=== PATIENT | male | born 1950 | race Caucasian/White ===

== ENCOUNTER → 2016-11-26 | Outpatient (CLI) | payer BC | LOC: RAD 08:20 | PROVIDERS: ATTEND Internal Medicine | DX: I71.4 Abdominal aortic aneurysm, without rupture (principal) | CPT/HCPCS: 74177; 82565 ==

== ENCOUNTER 2017-09-26 11:19 | Inpatient (IN) | payer BC ==
[2017-09-26 13:12] LABS: HEMATOCRIT 39.7 % (37.9-51.0); HGB HCT DIFFERENCE -0.7; MEAN CORPUSCULAR HEMOGLOBIN 27.9 pg (27.0-33.4); MEAN CORPUSCULAR HGB CONC 32.9 g/dL (32.0-36.0); MEAN CORPUSCULAR VOLUME 85 fl (80-97); RED BLOOD COUNT 4.67 10^6/uL (4.35-5.55); RED CELL DISTRIBUTION WIDTH 14.2 % (11.5-14.0); WHITE BLOOD COUNT 10.9 10^3/uL (4.0-10.5)
[2017-09-26 13:22] LABS: PROTHROMBIN TIME 19.8 SEC (11.4-15.4)
[2017-09-26 13:23] LABS: PARTIAL THROMBOPLASTIN TIME 30.3 SEC (23.5-35.8)
[2017-09-26 13:44] LABS: ALANINE AMINOTRANSFERASE 62 U/L (21-72); ALBUMIN 4.1 g/dL (3.5-5.0); ALKALINE PHOSPHATASE 131 U/L (38-126); ANION GAP 14 (5-19); ASPARTATE AMINO TRANSFERASE 40 U/L (17-59); BILIRUBIN,DIRECT 0.4 mg/dL (0.0-0.4); BLOOD UREA NITROGEN 21 mg/dL (7-20); CALCIUM 9.4 mg/dL (8.4-10.2); CARBON DIOXIDE 23 mmol/L (22-30); CHLORIDE 105 mmol/L (98-107); CREATININE RESULT 1.19 mg/dL (0.52-1.25); GLUCOSE 179 mg/dL (75-110); POTASSIUM 4.7 mmol/L (3.6-5.0); SODIUM 141.9 mmol/L (137-145); TOTAL PROTEIN 7.9 g/dL (6.3-8.2)
[2017-09-26] MEDS ORDERED: FENTANYL CITRATE INJ/PF 100 MCG/2 ML AMPUL ONE (13:48)
[2017-09-26] MEDS ORDERED: NALOXONE HCL INJ/PF 0.4 MG/1 ML SDV ONE (13:48)
[2017-09-26] MEDS ORDERED: MIDAZOLAM 2 MG/2 ML INJ ONE (13:48)
[2017-09-26] MEDS ORDERED: FLUMAZENIL INJ 0.5 MG/5 ML VIAL ONE (13:49)
[2017-09-26] MEDS ORDERED: EPINEPHRINE INJ 1 MG/10 ML DISP.SYRIN ONE (13:49)
[2017-09-26] MEDS ORDERED: GLUCAGON,HUMAN RECOMB 1 MG INJ ONE (13:49)
--- NOTE | 2017-09-26 14:52 | PDOC CONSULTATION ---
Consultation Consult Date: 09/26/17 History of Present Illness Admission Date/PCP: 09/26/17 11:19 RAFAEL SEGUNDO MD History of Present Illness: SUNNI MONIQUE is a 66-year-old patient admitted directly to the hospital with rectal bleeding. The bleeding started last night when he had 2 episodes and another episode this morning. There was a lot of blood in the toilet bowl. He denies abdominal pain, nausea, or vomiting. He had an EGD on 09/22/2017 that was normal. This was performed for reflux disease. He takes Coumadin and his INR was 1.58 on admission. He had a colonoscopy in 2013 that showed hemorrhoids and pancolonic diverticulosis Past Medical History Cardiac Medical History: Reports: Hypertension Neurological Medical History: Denies: Seizures Endocrine Medical History: Reports: Diabetes Mellitus Type 2 Psychiatric Medical History: Reports: Depression Social History Smoking Status: Former Smoker Frequency of Alcohol Use: Occasional Hx Recreational Drug Use: No Drugs: None Hx Prescription Drug Abuse: No - Advance Directive Resuscitation Status: Full Code Family History Parental Family History Reviewed: No Children Family History Reviewed: NA Sibling(s) Family History Reviewed.: NA Medication/Allergy Home Medications: Aspirin [Aspirin EC] 81 mg PO DAILY 09/26/17 Atorvastatin Calcium [Lipitor 80 mg Tablet] 80 mg PO QHS 09/26/17 Desipramine HCl [Norpramin 50 mg Tablet] 50 mg PO DAILY 09/26/17 Dulaglutide [Trulicity] 1.5 mg SQ FR@1000 09/26/17 Glyburide/Metformin HCl [Glyburide-Metformin 5-500 mg] 1 tab PO TID 09/26/17 Losartan/Hydrochlorothiazide [Hyzaar 100-25 Tablet] 1 tab PO DAILY 09/26/17 Metoprolol Succinate [Toprol XL 200 mg Tablet] 200 mg PO DAILY 09/26/17 Multivitamin [Daily Multiple Vitamin] 1 tab PO DAILY 09/26/17 Tamsulosin HCl [Flomax 0.4 mg Cap.sr] 0.4 mg PO PCBRKFST 09/26/17 Warfarin Sodium [Coumadin 7.5 mg Tablet] 7.5 mg PO DAILY 09/26/17 Allergies/Adverse Reactions: No Known Drug Allergies Allergy (Verified 10/06/15 17:46) Review of Systems All systems: reviewed and no additional remarkable complaints except as stated Physical Exam Vital Signs: Temp Pulse Resp BP Pulse Ox 97.4 F 79 15 125/82 92 09/26/17 13:35 09/26/17 14:25 09/26/17 14:25 09/26/17 14:25 09/26/17 14:25 Intake & Output 09/25/17 09/26/17 09/27/17 06:59 06:59 06:59 Weight 116.6 kg Exam: General: Patient is alert and looks well. HEENT: There is no pallor or jaundice. PERRLA. Oropharynx normal Respiratory: No chest deformity. No respiratory distress. Chest wall palpitation was unremarkable. Breath sounds were normal Cardiovascular: Heart sounds 1 and 2 normal with no murmurs. Abdominal: Not distended. Soft and nontender. Liver and spleen not palpable. No ascites demonstrated. Bowel sounds active. Rectal examination was deferred. Extremities: No edema Neurological: Alert and oriented x4. Grossly nonfocal. Normal speech Skin: No significant rash Psychological: Normal affect Results Laboratory Results: 09/26/17 12:53 09/26/17 12:53 09/26/17 09/26/17 09/26/17 12:53 12:53 12:53 WBC 10.9 H RBC 4.67 Hgb 13.0 L Hct 39.7 MCV 85 MCH 27.9 MCHC 32.9 RDW 14.2 H Plt Count 301 Sodium 141.9 Potassium 4.7 Chloride 105 Carbon Dioxide 23 Anion Gap 14 BUN 21 H Creatinine 1.19 Est GFR ( Amer) > 60 Est GFR (Non-Af Amer) > 60 Glucose 179 H Calcium 9.4 Total Bilirubin 1.0 AST 40 ALT 62 Alkaline Phosphatase 131 H Total Protein 7.9 Albumin 4.1 Blood Type B POSITIVE Antibody Screen NEGATIVE Assessment & Plan - Diagnosis (1) GI bleed Is this a current diagnosis for this admission?: Yes Plan: Differential diagnosis for his rectal bleeding include diverticular disease, hemorrhoids, and less likely peptic ulcer disease. He will undergo an EGD and a colonoscopy. His hemoglobin was 13 on admission (2) Rectal bleeding Is this a current diagnosis for this admission?: Yes (3) High risk medication use Is this a current diagnosis for this admission?: Yes
--- NOTE | 2017-09-26 14:55 | Operative Report ---
Operative Report DATE OF SURGERY: 09/26/17 Operative Report: Pre-op diagnosis: Rectal bleeding Post-op diagnosis: 1. Antral gastritis 2. Left-sided diverticulosis with bleeding 3. Limited view of the colon Surgery: Upper endoscopy with biopsy and Colonoscopy Medications: Versed 2mg, Fentanyl 100mcg IV push Tissue removed: Antral biopsy Procedure: After informed consent obtained from patient, patient's pharynx was sprayed with Hurricane and conscious sedation was achieved. The upper endoscope was then inserted into the esophagus under direct vision and advanced into the stomach and further into the duodenum. Detailed examination of the duodenum, stomach and the esophagus was then performed. A digital rectal examination was performed and this was unremarkable. The colonoscope was inserted into the rectum and advanced to the cecum. The appendiceal orifice and the terminal ileum were both identified. The mucosa was examined into details as the colonoscope was slowly pulled out of the patient. The endoscope was retroflexed in the rectum. Patient tolerated the procedure well. Findings Esophagus: Normal Stomach: Mild erythema in the gastric antrum. Biopsy was taken Duodenum: Normal Cecum: Normal Ascending colon: Normal with no evidence of old blood Transverse colon: Normal Descending colon: Scattered diverticulosis with altered blood. Limited view Sigmoid colon: Diverticulosis with altered blood. A bleeding site was not identified. Limited view Rectum: Normal except for internal hemorrhoids Plan: He likely bled from his diverticular disease. Continue following up his H &H and perform a bleeding scan and surgical consult if there is further evidence of acute blood loss OPERATION: .
[2017-09-26] MEDS: NORMAL SALINE 1000 ML 1,000 ML IV PRN (17:02)
--- NOTE | 2017-09-26 17:09 | RADIOLOGY REPORT (SQ) ---
EXAM DESCRIPTION: CHEST SINGLE VIEW COMPLETED DATE/TIME: 09/26/2017 4:45 pm REASON FOR STUDY: BASELINE COMPARISON: 10/06/2015 EXAM PARAMETERS: NUMBER OF VIEWS: One view. TECHNIQUE: Single frontal radiographic view of the chest acquired. RADIATION DOSE: NA LIMITATIONS: None. FINDINGS: LUNGS AND PLEURA: Low lung volumes. No infiltrate or effusion. MEDIASTINUM AND HILAR STRUCTURES: No masses. Contour normal. HEART AND VASCULAR STRUCTURES: Cardiomegaly, accentuated by low lung volumes. BONES: No acute findings. HARDWARE: None in the chest. OTHER: No other significant finding. IMPRESSION: Cardiomegaly without failure. TECHNICAL DOCUMENTATION: JOB ID: [id number] [employer]- All Rights Reserved
[2017-09-26] MEDS ORDERED: GLUCAGON,HUMAN RECOMB 1 MG INJ IM PRN (17:51)
[2017-09-26] MEDS ORDERED: DEXTROSE 40% GEL 15 GM TUBE PO PRN ×2 (17:51)
[2017-09-26] MEDS ORDERED: DEXTROSE 50%-WATER 25 GM/50 ML DISP.SYRIN IV PRN ×2 (17:51)
[2017-09-26] MEDS ORDERED: INSULIN REG, HUMAN 100 UNIT/ML 3 ML VIAL (PYX) SUBCUT PRN (17:51)
[2017-09-26] MEDS ORDERED: (PENDING PHARMACY ID) (Glyburide/Metformin Hcl [Glyburide-Metformin 5-500 Mg] 1 TAB) PO SCH (18:00)
[2017-09-26] MEDS ORDERED: (PENDING PHARMACY ID) (Losartan/Hydrochlorothiazide [Hyzaar 100-25 Tablet] 1 TAB) PO SCH (18:00)
[2017-09-26] MEDS ORDERED: (PENDING PHARMACY ID) (Metoprolol Succinate [Toprol Xl 200 Mg Tablet] 200 MG) PO SCH (18:00)
--- NOTE | 2017-09-26 19:11 | PDOC H&P ---
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 Consultation was requested from Dr. Gonzalez, gastroenterology, he underwent immediate EGD and colonoscopy he was found to have left-sided diverticulosis with bleeding and antral gastritis. The hemogram that was done revealed hemoglobin of 13, no immediate need for blood transfusion. The blood pressure recorded in the office was 90 systolic Past Medical History Cardiac Medical History: Reports: Hypertension Endocrine Medical History: Reports: Diabetes Mellitus Type 2 Psychiatric Medical History: Reports: Depression Social History Smoking Status: Former Smoker Frequency of Alcohol Use: Occasional Hx Recreational Drug Use: No Drugs: None Hx Prescription Drug Abuse: No - Advance Directive Resuscitation Status: Full Code Family History Parental Family History Reviewed: Yes Children Family History Reviewed: Yes Sibling(s) Family History Reviewed.: Yes Medication/Allergy Home Medications: Aspirin [Aspirin EC] 81 mg PO DAILY 09/26/17 Atorvastatin Calcium [Lipitor 80 mg Tablet] 80 mg PO QHS 09/26/17 Desipramine HCl [Norpramin 50 mg Tablet] 50 mg PO DAILY 09/26/17 Dulaglutide [Trulicity] 1.5 mg SQ FR@1000 09/26/17 Glyburide/Metformin HCl [Glyburide-Metformin 5-500 mg] 1 tab PO TID 09/26/17 Losartan/Hydrochlorothiazide [Hyzaar 100-25 Tablet] 1 tab PO DAILY 09/26/17 Metoprolol Succinate [Toprol XL 200 mg Tablet] 200 mg PO DAILY 09/26/17 Multivitamin [Daily Multiple Vitamin] 1 tab PO DAILY 09/26/17 Tamsulosin HCl [Flomax 0.4 mg Cap.sr] 0.4 mg PO PCBRKFST 09/26/17 Warfarin Sodium [Coumadin 7.5 mg Tablet] 7.5 mg PO DAILY 09/26/17 Allergies/Adverse Reactions: No Known Drug Allergies Allergy (Verified 10/06/15 17:46) Review of Systems Constitutional: PRESENT: fatigue Eyes: ABSENT: visual disturbances Ears: ABSENT: hearing changes Cardiovascular: ABSENT: chest pain, dyspnea on exertion, edema, orthropnea, palpitations Respiratory: ABSENT: cough, hemoptysis Gastrointestinal: PRESENT: hematochezia Genitourinary: ABSENT: dysuria, hematuria Musculoskeletal: ABSENT: joint swelling Integumentary: ABSENT: rash, wounds Neurological: ABSENT: abnormal gait, abnormal speech, confusion, dizziness, focal weakness, syncope Psychiatric: ABSENT: anxiety, depression, homidical ideation, suicidal ideation Endocrine: ABSENT: cold intolerance, heat intolerance, menstrual abnormalities, polydipsia, polyuria Hematologic/Lymphatic: ABSENT: easy bleeding, easy bruising, lymphadenopathy Physical Exam Vital Signs: Temp Pulse Resp BP Pulse Ox 97.5 F 87 18 112/61 97 09/26/17 16:00 09/26/17 16:00 09/26/17 16:00 09/26/17 16:00 09/26/17 16:00 Intake & Output 09/25/17 09/26/17 09/27/17 06:59 06:59 06:59 Intake Total 2250 Balance 2250 Weight 116.6 kg General appearance: PRESENT: mild distress Head exam: PRESENT: atraumatic, normocephalic Eye exam: PRESENT: conjunctiva pale, PERRLA. ABSENT: scleral icterus Mouth exam: PRESENT: dry mucosa Neck exam: PRESENT: full ROM Respiratory exam: PRESENT: clear to auscultation keny Cardiovascular exam: PRESENT: RRR, +S2 Murmur grade: 3 Pulses: PRESENT: normal dorsalis pedis pul, +2 pedal pulses bilateral Vascular exam: PRESENT: normal capillary refill GI/Abdominal exam: PRESENT: normal bowel sounds, soft Rectal exam: PRESENT: deferred Neurological exam: PRESENT: altered Psychiatric exam: PRESENT: appropriate affect Skin exam: PRESENT: dry, intact, warm. ABSENT: cyanosis, rash Results Laboratory Results: 09/26/17 12:53 09/26/17 12:53 09/26/17 09/26/17 09/26/17 12:53 12:53 12:53 WBC 10.9 H RBC 4.67 Hgb 13.0 L Hct 39.7 MCV 85 MCH 27.9 MCHC 32.9 RDW 14.2 H Plt Count 301 Sodium 141.9 Potassium 4.7 Chloride 105 Carbon Dioxide 23 Anion Gap 14 BUN 21 H Creatinine 1.19 Est GFR ( Amer) > 60 Est GFR (Non-Af Amer) > 60 Glucose 179 H Calcium 9.4 Total Bilirubin 1.0 AST 40 ALT 62 Alkaline Phosphatase 131 H Total Protein 7.9 Albumin 4.1 Blood Type B POSITIVE Antibody Screen NEGATIVE Impressions: Chest X-Ray 09/26/17 12:13 IMPRESSION: Cardiomegaly without failure. Assessment & Plan - Diagnosis (1) Lower gastrointestinal hemorrhage Is this a current diagnosis for this admission?: Yes Plan: Patient came to the office today for evaluation of lower gastrointestinal hemorrhage, he underwent immediate EGD and colonoscopy he was found to have left -sided diverticulosis with bleeding (2) Hypotension due to blood loss Is this a current diagnosis for this admission?: Yes Plan: Low blood pressure due to blood loss, continue hydration with normal saline
[2017-09-26] MEDS: ATORVASTATIN CALCIUM 80 MG TABLET PO SCH (22:04)
[2017-09-27] MEDS: NORMAL SALINE 1000 ML 1,000 ML IV PRN ×3 (01:41→15:43)
[2017-09-27] MEDS: TAMSULOSIN HCL 0.4 MG CAP.SR.24H PO SCH (08:18)
[2017-09-27] MEDS: METFORMIN HCL 500 MG TABLET PO SCH ×3 (08:19→16:56)
[2017-09-27] MEDS: GLYBURIDE 5 MG TABLET PO SCH ×3 (08:19→16:57)
[2017-09-27] MEDS: METOPROLOL SUCCINATE 50 MG TAB.SR.24H PO SCH (09:15)
[2017-09-27] MEDS: HYDROCHLOROTHIAZIDE 25 MG TABLET PO SCH (09:16)
[2017-09-27] MEDS: LOSARTAN POTASSIUM 50 MG TABLET PO SCH (09:16)
[2017-09-27] MEDS: MULTIVITAMIN TABLET PO SCH (09:17)
[2017-09-27] MEDS: DESIPRAMINE HCL 50 MG TABLET PO SCH (09:55)
[2017-09-27 13:30] LABS: ABSOLUTE LYMPHOCYTES (AUTO) 2.4 10^3/uL (0.5-4.7); ABSOLUTE MONOCYTES (AUTO) 0.6 10^3/uL (0.1-1.4); ABSOLUTE NEUT (AUTO) 4.3 10^3/uL (1.7-8.2); BASOPHILS % (AUTO) 0.4 % (0-2); EOSINOPHILS % (AUTO) 0.4 % (0-6); HEMATOCRIT 33.2 % (37.9-51.0); HGB HCT DIFFERENCE -0.5; LYMPHOCYTES % (AUTO) 32.4 % (13-45); MEAN CORPUSCULAR HGB CONC 32.9 g/dL (32.0-36.0); MEAN CORPUSCULAR VOLUME 85 fl (80-97); MONOCYTES % (AUTO) 8.4 % (3-13); SEGMENTED NEUTROPHILS % (AUTO) 58.4 % (42-78); WHITE BLOOD COUNT 7.4 10^3/uL (4.0-10.5)
[2017-09-27 13:31] LABS: HEMOGLOBIN 10.9 g/dL (13.5-17.0)
[2017-09-27 13:43] LABS: ALANINE AMINOTRANSFERASE 49 U/L (21-72); ALBUMIN 3.3 g/dL (3.5-5.0); ALKALINE PHOSPHATASE 87 U/L (38-126); ANION GAP 10 (5-19); ASPARTATE AMINO TRANSFERASE 30 U/L (17-59); BILIRUBIN,DIRECT 0.3 mg/dL (0.0-0.4); BILIRUBIN,TOTAL 0.9 mg/dL (0.2-1.3); BLOOD UREA NITROGEN 11 mg/dL (7-20); CALCIUM 8.8 mg/dL (8.4-10.2); CARBON DIOXIDE 27 mmol/L (22-30); CHLORIDE 108 mmol/L (98-107); CREATININE RESULT 0.95 mg/dL (0.52-1.25); GLUCOSE 113 mg/dL (75-110); POTASSIUM 3.9 mmol/L (3.6-5.0); SODIUM 144.7 mmol/L (137-145); TOTAL PROTEIN 6.5 g/dL (6.3-8.2)
--- NOTE | 2017-09-27 14:19 | PDOC PROGRESS REPORT ---
Subjective Progress Note for:: 09/27/17 Subjective:: Patient was admitted yesterday because of GI bleed, he has not required any blood transfusion, he told me that he had blood the stool today when he had a bowel movement Physical Exam Vital Signs: Temp Pulse Resp BP Pulse Ox 98.5 F 83 18 116/71 95 09/27/17 12:01 09/27/17 14:00 09/27/17 12:01 09/27/17 12:01 09/27/17 12:01 Intake & Output 09/26/17 09/27/17 09/28/17 06:59 06:59 06:59 Intake Total 4050 354 Output Total 1000 Balance 3050 354 Weight 115.5 kg General appearance: PRESENT: no acute distress, well-developed, well-nourished Head exam: PRESENT: atraumatic, normocephalic Eye exam: PRESENT: conjunctiva pink, EOMI, PERRLA. ABSENT: scleral icterus Ear exam: PRESENT: normal external ear exam Mouth exam: PRESENT: moist, tongue midline Neck exam: PRESENT: full ROM Respiratory exam: PRESENT: clear to auscultation keny Cardiovascular exam: PRESENT: RRR, +S1, +S2 Murmur grade: 3 Pulses: PRESENT: normal dorsalis pedis pul, +2 pedal pulses bilateral Vascular exam: PRESENT: normal capillary refill GI/Abdominal exam: PRESENT: normal bowel sounds, soft Rectal exam: PRESENT: deferred Neurological exam: PRESENT: alert, awake, oriented to person, oriented to place , oriented to time, oriented to situation, CN II-XII grossly intact. ABSENT: motor sensory deficit Psychiatric exam: PRESENT: appropriate affect, normal mood Skin exam: PRESENT: dry, intact, warm Results Laboratory Results: 09/27/17 13:14 09/27/17 13:14 09/26/17 09/27/17 09/27/17 18:40 13:14 13:14 WBC 7.4 RBC 3.90 L Hgb 10.9 L D Hct 33.2 L MCV 85 MCH 28.0 MCHC 32.9 RDW 14.0 Plt Count 241 Seg Neutrophils % 58.4 Lymphocytes % 32.4 Monocytes % 8.4 Eosinophils % 0.4 Basophils % 0.4 Absolute Neutrophils 4.3 Absolute Lymphocytes 2.4 Absolute Monocytes 0.6 Absolute Eosinophils 0.0 Absolute Basophils 0.0 Sodium 144.7 Potassium 3.9 Chloride 108 H Carbon Dioxide 27 Anion Gap 10 BUN 11 Creatinine 0.95 Est GFR ( Amer) > 60 Est GFR (Non-Af Amer) > 60 Glucose 113 H Calcium 8.8 Total Bilirubin 0.9 AST 30 ALT 49 Alkaline Phosphatase 87 Total Protein 6.5 Albumin 3.3 L Stool Occult Blood POSITIVE Impressions: Chest X-Ray 09/26/17 12:13 IMPRESSION: Cardiomegaly without failure. Assessment & Plan - Diagnosis (1) Lower gastrointestinal hemorrhage Is this a current diagnosis for this admission?: Yes (2) Hypotension due to blood loss Is this a current diagnosis for this admission?: Yes - Plan Summary Plan Summary: Patient will be kept for 1 more day to ensure that there is no ongoing GI bleed if the GI bleed should recur ,will required a bleeding scan
[2017-09-27] MEDS: ATORVASTATIN CALCIUM 80 MG TABLET PO SCH (21:24)
[2017-09-28] MEDS: METFORMIN HCL 500 MG TABLET PO SCH ×2 (08:04→11:37)
[2017-09-28] MEDS: TAMSULOSIN HCL 0.4 MG CAP.SR.24H PO SCH (08:04)
[2017-09-28] MEDS: GLYBURIDE 5 MG TABLET PO SCH ×2 (08:04→11:37)
[2017-09-28] MEDS: MULTIVITAMIN TABLET PO SCH (09:52)
[2017-09-28] MEDS: DESIPRAMINE HCL 50 MG TABLET PO SCH (09:52)
[2017-09-28] MEDS: LOSARTAN POTASSIUM 50 MG TABLET PO SCH (09:53)
[2017-09-28] MEDS: HYDROCHLOROTHIAZIDE 25 MG TABLET PO SCH (09:53)
[2017-09-28] MEDS: METOPROLOL SUCCINATE 50 MG TAB.SR.24H PO SCH (09:54)
[2017-09-28 11:33] LABS: ABSOLUTE EOSINOPHILS # (AUTO) 0.1 10^3/uL (0.0-0.6); ABSOLUTE MONOCYTES (AUTO) 0.5 10^3/uL (0.1-1.4); ABSOLUTE NEUT (AUTO) 4.6 10^3/uL (1.7-8.2); BASOPHILS % (AUTO) 0.5 % (0-2); EOSINOPHILS % (AUTO) 1.4 % (0-6); HEMATOCRIT 30.3 % (37.9-51.0); HEMOGLOBIN 9.9 g/dL (13.5-17.0); HGB HCT DIFFERENCE -0.6; LYMPHOCYTES % (AUTO) 27.6 % (13-45); MEAN CORPUSCULAR HEMOGLOBIN 27.8 pg (27.0-33.4); MEAN CORPUSCULAR HGB CONC 32.7 g/dL (32.0-36.0); MEAN CORPUSCULAR VOLUME 85 fl (80-97); MONOCYTES % (AUTO) 7.4 % (3-13); RED BLOOD COUNT 3.57 10^6/uL (4.35-5.55); SEGMENTED NEUTROPHILS % (AUTO) 63.1 % (42-78); WHITE BLOOD COUNT 7.2 10^3/uL (4.0-10.5)
[2017-09-28 11:41] VITALS: BP 113/75
[2017-09-28 11:55] LABS: ALANINE AMINOTRANSFERASE 49 U/L (21-72); ALKALINE PHOSPHATASE 88 U/L (38-126); ANION GAP 8 (5-19); ASPARTATE AMINO TRANSFERASE 28 U/L (17-59); BILIRUBIN,DIRECT 0.3 mg/dL (0.0-0.4); BILIRUBIN,TOTAL 0.8 mg/dL (0.2-1.3); BLOOD UREA NITROGEN 9 mg/dL (7-20); CALCIUM 8.7 mg/dL (8.4-10.2); CARBON DIOXIDE 25 mmol/L (22-30); CHLORIDE 110 mmol/L (98-107); CREATININE RESULT 0.91 mg/dL (0.52-1.25); GLUCOSE 151 mg/dL (75-110); POTASSIUM 3.9 mmol/L (3.6-5.0); SODIUM 143.1 mmol/L (137-145); TOTAL PROTEIN 6.2 g/dL (6.3-8.2)
--- NOTE | 2017-09-28 13:54 | PDOC DISCHARGE SUMMARY ---
General - Admit/Disc Date/PCP Admission Date/Primary Care Provider: 09/26/17 11:19 RAFAEL SEGUNDO MD Discharge Date: 09/28/17 - Discharge Diagnosis (1) Lower gastrointestinal hemorrhage Is this a current diagnosis for this admission?: Yes (2) Hypotension due to blood loss Is this a current diagnosis for this admission?: Yes (3) Type 2 diabetes mellitus Is this a current diagnosis for this admission?: Yes (4) Diverticulosis of colon with hemorrhage Is this a current diagnosis for this admission?: Yes - Additional Information Resuscitation Status: Full Code Discharge Diet: Diabetic Discharge Activity: Activity As Tolerated Home Medications: Aspirin [Aspirin EC] 81 mg PO DAILY 09/26/17 Atorvastatin Calcium [Lipitor 80 mg Tablet] 80 mg PO QHS 09/26/17 Desipramine HCl [Norpramin 50 mg Tablet] 50 mg PO DAILY 09/26/17 Dulaglutide [Trulicity] 1.5 mg SQ FR@1000 09/26/17 Glyburide/Metformin HCl [Glyburide-Metformin 5-500 mg] 1 tab PO TID 09/26/17 Losartan/Hydrochlorothiazide [Hyzaar 100-25 Tablet] 1 tab PO DAILY 09/26/17 Metoprolol Succinate [Toprol XL 200 mg Tablet] 200 mg PO DAILY 09/26/17 Multivitamin [Daily Multiple Vitamin] 1 tab PO DAILY 09/26/17 Tamsulosin HCl [Flomax 0.4 mg Cap.sr] 0.4 mg PO PCBRKFST 09/26/17 Warfarin Sodium [Coumadin 7.5 mg Tablet] 7.5 mg PO DAILY 09/26/17 History of Present Illness History of Present Illness: Patient 66-year-old male with a history of type 2 diabetes mellitus, 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 Consultation was requested from Dr. Gonzalez, gastroenterology, he underwent immediate EGD and colonoscopy he was found to have left-sided diverticulosis with bleeding and antral gastritis. The hemogram that was done revealed hemoglobin of 13, no immediate need for blood transfusion. The blood pressure recorded in the office was 90 systolic Hospital Course Hospital Course: Patient was admitted for the management of lower GI bleed with associated hypotension, he was seen by GI Dr. Gonzalez, he underwent EGD and colonoscopy. There was blood in the left colon, it was felt that he bled from diverticulosis. He did not require blood transfusion during hospital stay patient is on warfarin chronically because of aneurysm of the coronary artery, is advised to hold the warfarin until he follows in the office for follow-up Physical Exam Vital Signs: Temp Pulse Resp BP Pulse Ox 98.1 F 81 17 113/75 96 09/28/17 11:32 09/28/17 11:32 09/28/17 11:32 09/28/17 11:32 09/28/17 11:32 Intake & Output 09/27/17 09/28/17 09/29/17 06:59 06:59 06:59 Intake Total 4050 4946 591 Output Total 1000 Balance 3050 4946 591 Weight 115.5 kg 119.6 kg General appearance: PRESENT: no acute distress, well-developed, well-nourished Head exam: PRESENT: atraumatic, normocephalic Eye exam: PRESENT: conjunctiva pink, EOMI, PERRLA Ear exam: PRESENT: normal external ear exam Mouth exam: PRESENT: moist, tongue midline Neck exam: PRESENT: full ROM Respiratory exam: PRESENT: clear to auscultation keny Cardiovascular exam: PRESENT: RRR, +S1, +S2 Murmur grade: 3 Pulses: PRESENT: normal dorsalis pedis pul, +2 pedal pulses bilateral Vascular exam: PRESENT: normal capillary refill GI/Abdominal exam: PRESENT: normal bowel sounds, soft Rectal exam: PRESENT: deferred Neurological exam: PRESENT: alert, awake, oriented to person, oriented to place , oriented to time, oriented to situation, CN II-XII grossly intact Psychiatric exam: PRESENT: appropriate affect, normal mood Skin exam: PRESENT: dry, intact, warm Results Laboratory Results: 09/28/17 11:26 09/28/17 11:26 09/28/17 09/28/17 11:26 11:26 WBC 7.2 RBC 3.57 L Hgb 9.9 L Hct 30.3 L MCV 85 MCH 27.8 MCHC 32.7 RDW 14.0 Plt Count 225 Seg Neutrophils % 63.1 Lymphocytes % 27.6 Monocytes % 7.4 Eosinophils % 1.4 Basophils % 0.5 Absolute Neutrophils 4.6 Absolute Lymphocytes 2.0 Absolute Monocytes 0.5 Absolute Eosinophils 0.1 Absolute Basophils 0.0 Sodium 143.1 Potassium 3.9 Chloride 110 H Carbon Dioxide 25 Anion Gap 8 BUN 9 Creatinine 0.91 Est GFR ( Amer) > 60 Est GFR (Non-Af Amer) > 60 Glucose 151 H Calcium 8.7 Total Bilirubin 0.8 AST 28 ALT 49 Alkaline Phosphatase 88 Total Protein 6.2 L Albumin 3.0 L Impressions: Chest X-Ray 09/26/17 12:13 IMPRESSION: Cardiomegaly without failure.
[2017-10-03] MEDS ORDERED: (PENDING PHARMACY ID) (Dulaglutide [Trulicity] 1.5 MG) SQ SCH (10:00)
== END 2017-09-28 14:50 | disposition home or self-care (01) | DRG 378 ==
LOC: 3W 11:19
PROVIDERS: ADMIT Internal Medicine; ATTEND Internal Medicine
PROC: 0DB68ZX Excision of Stomach, Via Natural or Artificial Opening Endoscopic, Diagnostic (ICD-10-PCS; principal; 2017-09-26 14:00)
PROC: 0DJD8ZZ Inspection of Lower Intestinal Tract, Via Natural or Artificial Opening Endoscopic (ICD-10-PCS; 2017-09-26 14:00)
DX: K57.31 Diverticulosis of large intestine without perforation or abscess with bleeding (principal); D62 Acute posthemorrhagic anemia; E11.9 Type 2 diabetes mellitus without complications; I95.89 Other hypotension; K29.60 Other gastritis without bleeding; I10 Essential (primary) hypertension; I25.41 Coronary artery aneurysm; K64.4 Residual hemorrhoidal skin tags; F32.9 Major depressive disorder, single episode, unspecified; Z87.891 Personal history of nicotine dependence; Z79.82 Long term (current) use of aspirin; Z79.899 Other long term (current) drug therapy; Z79.02 Long term (current) use of antithrombotics/antiplatelets
CPT/HCPCS: 36415; 43239; 45378; 71010; 80048; 80053; 80076; 82272; 82962; 85025; 85027; 85610; 85730; 86850; 86900; 86901; 86920; 87040; 87086; 88305; 88342; J0171; J1610; J1815; J2250; J2310; J3010; J3490; J7030

== ENCOUNTER → 2018-03-23 | Outpatient (CLI) | payer BC, MEDICARE ==
--- NOTE | 2018-03-23 14:41 | RADIOLOGY REPORT (SQ) ---
EXAM DESCRIPTION: CT ABD/PELVIS NO ORAL OR IV COMPLETED DATE/TIME: 03/23/2018 7:08 am REASON FOR STUDY: AAA (I71.4) I71.4 ABDOMINAL AORTIC ANEURYSM, WITHOUT RUPTURE COMPARISON: 11/26/2016 TECHNIQUE: CT scan of the abdomen and pelvis performed without intravenous or oral contrast. Images reviewed with lung, soft tissue, and bone windows. Reconstructed coronal and sagittal MPR images revi ewed. All images stored on PACS. All CT scanners at this facility use dose modulation, iterative reconstruction, and/or weight based d osing when appropriate to reduce radiation dose to as low as reasonably achievable (ALARA). [facility]: Dose Right [facility]: CareDose [facility]: Dose Right [facility]: Teradose 4D [facility]: [employer] RADIATION DOSE: CT Rad equipment meets quality standard of care and radiation dose reduction techniq ues were employed. CTDIvol: 23.5 mGy. DLP: 1314 mGy-cm.mGy. LIMITATIONS: None. FINDINGS: LOWER CHEST: Stable less than 6 mm nodules right lower lung. NON-CONTRASTED LIVER, SPLEEN, ADRENALS: Stable left adrenal nodule. PANCREAS: No masses. No peripancreatic inflammatory changes. GALLBLADDER: No identified stones by CT criteria. No inflammatory changes to suggest cholecystitis. RIGHT KIDNEY AND URETER: No suspicious masses. Assessment limited by lack of IV contrast. No signif icant calcifications. No hydronephrosis or hydroureter. LEFT KIDNEY AND URETER: No suspicious masses. Assessment limited by lack of IV contrast. No signifi cant calcifications. No hydronephrosis or hydroureter. AORTA AND RETROPERITONEUM: 4.0 x 4.2 cm aortic aneurysm level of KRISTIN, not significantly changed. BOWEL AND PERITONEAL CAVITY: Diffuse diverticulosis. No obvious masses or inflammatory changes. No f ree fluid. APPENDIX: Normal. PELVIS, BLADDER, AND ABDOMINAL WALL:No abnormal masses. No free fluid. Bladder normal. BONES: No acute findings. OTHER: No other significant finding. IMPRESSION: Stable 4.2 cm distal aortic aneurysm. COMMENT: Quality ID # [id number]: Final reports with documentation of one or more dose reduction techniques (e.g., Automated exposure control, adjustment of the mA and/or kV according to patient size, use of iterative reconstruction technique) TECHNICAL DOCUMENTATION: JOB ID: [id number] All Rights Reserved Reading location - IP/workstation name: [email or web address]
== END ==
LOC: RAD 06:57
PROVIDERS: ATTEND Internal Medicine
DX: I71.4 Abdominal aortic aneurysm, without rupture (principal)
CPT/HCPCS: 74176

== ENCOUNTER → 2020-01-05 | Outpatient (CLI) | payer MEDICARE ==
--- NOTE | 2020-01-05 12:52 | RADIOLOGY REPORT (SQ) ---
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 The route of agent administration: Intravenous. ADDITIONAL DRUGS AND DOSES: None. TECHNIQUE: Routine delayed images at 3 hour post radionuclide injection acquired of the bony skeleto n including anterior and posterior whole-body projections and additional focused images as needed. LIMITATIONS: None. FINDINGS: BONES: Mild increased up taken the left knee laterally most consistent with degenerative d isease. There is uptake in both the right and left midfoot. No findings to suggest metastatic disea se. KIDNEYS: Symmetric excretion without obstruction. OTHER: No other significant finding. IMPRESSION: Evidence of degenerative disease as described. No evidence of metastatic disease. COMMENT: Quality measure 147: Current bone scan is compared with any available plain radiographs, p rior bone scans, and CT/MRI. TECHNICAL DOCUMENTATION: JOB ID: [id number] 2010 [employer]- All Rights Reserved Reading location - IP/workstation name: [email or web address]
== END ==
LOC: RAD 08:20
PROVIDERS: ATTEND Urology
DX: C61 Malignant neoplasm of prostate (principal)
CPT/HCPCS: 78306; A9561; Q9969

== ENCOUNTER 2020-01-13 19:36 | Emergency (ER) | payer MEDICARE ==
[2020-01-13] MEDS ORDERED: NORMAL SALINE 1000 ML 1,000 ML IV ONE (20:03)
[2020-01-13] MEDS ORDERED: ACETAMINOPHEN 325 MG TABLET PO ONE (20:03)
--- NOTE | 2020-01-13 20:08 | ER Document Report ---
ED Medical Screen (RME) - General Chief Complaint: Lower Abdominal Pain Stated Complaint: LOW ABDOMINAL PAIN Time Seen by Provider: 01/13/20 19:59 Primary Care Provider: NA STEVE MD [Primary Care Provider] - Follow up as needed TRAVEL OUTSIDE OF THE [place] IN LAST 30 DAYS: No - HPI Notes: 01/13/20 20:04 Patient is a 69-year-old male with history of hypertension, coronary disease, diabetes presents 3 days postop for prostate surgery done laparoscopically complaining of mid abdominal pain and fever that began over the past couple days. Denies drug allergies. He has had decreased p.o. intake. He is able to urinate, but has not had a bowel movement since prior to the surgery. No chest pain or shortness of breath. No congestion or cough. I have treated and performed a rapid initial assessment of this patient. A comprehensive ED assessment and evaluation of the patient, analysis of test results and completion of medical decision making process will be conducted by additional ED providers. PHYSICAL EXAMINATION: GENERAL: Well-appearing, well-nourished and in no acute distress. A&Ox4. Answers questions appropriately. Lungs: CTAB Abdomen: Generalized tenderness noted. No obvious purulence or erythema around surgical incision sites. Otherwise limited exam in triage. - Related Data Allergies/Adverse Reactions: No Known Drug Allergies Allergy (Verified 10/06/15 17:46) Past Medical History - Past Medical History Cardiac Medical History: Reports: Hx Hypertension Neurological Medical History: Denies: Hx Seizures Endocrine Medical History: Reports: Hx Diabetes Mellitus Type 2 Psychiatric Medical History: Reports: Hx Depression Physical Exam - Vital signs Vitals: Temp Pulse Resp BP Pulse Ox 102.8 F H 102 H 24 H 112/72 90 L 01/13/20 19:44 01/13/20 19:44 01/13/20 19:44 01/13/20 19:44 01/13/20 19:44 Course - Vital Signs Vital signs: Temp Pulse Resp BP Pulse Ox 102.8 F H 102 H 24 H 112/72 90 L 01/13/20 19:44 01/13/20 19:44 01/13/20 19:44 01/13/20 19:44 01/13/20 19:44 Doctor's Discharge - Discharge Referrals: NA STEVE MD [Primary Care Provider] - Follow up as needed
[2020-01-13 20:47] LABS: ABSOLUTE LYMPHOCYTES (AUTO) 0.7 10^3/uL (0.5-4.7); ABSOLUTE MONOCYTES (AUTO) 0.8 10^3/uL (0.1-1.4); ABSOLUTE NEUT (AUTO) 8.6 10^3/uL (1.7-8.2); BASOPHILS % (AUTO) 0.4 % (0-2); EOSINOPHILS % (AUTO) 0.2 % (0-6); HEMATOCRIT 37.2 % (37.9-51.0); HEMOGLOBIN 12.2 g/dL (13.5-17.0); LYMPHOCYTES % (AUTO) 7.1 % (13-45); MEAN CORPUSCULAR HEMOGLOBIN 27.6 pg (27.0-33.4); MEAN CORPUSCULAR HGB CONC 32.8 g/dL (32.0-36.0); MEAN CORPUSCULAR VOLUME 84 fl (80-97); MONOCYTES % (AUTO) 7.9 % (3-13); PLATELET COUNT 200 10^3/uL (150-450); RED BLOOD COUNT 4.42 10^6/uL (4.35-5.55); RED CELL DISTRIBUTION WIDTH 14.8 % (11.5-14.0); SEGMENTED NEUTROPHILS % (AUTO) 84.4 % (42-78); TOTAL CELLS COUNTED % (AUTO) 100 %; WHITE BLOOD COUNT 10.2 10^3/uL (4.0-10.5)
[2020-01-13 20:48] LABS: VENOUS BLOOD BASE EXCESS 1.5 mmol/L; VENOUS BLOOD HCO3 23.6 mmol/L (20-32); VENOUS BLOOD PCO2 30.4 mmHg (35-63); VENOUS BLOOD PH 7.51 (7.30-7.42)
[2020-01-13 20:58] LABS: INTERNATIONAL RATION (INR) 1.17
--- NOTE | 2020-01-13 21:09 | RADIOLOGY REPORT (SQ) ---
EXAM DESCRIPTION: XR CHEST 1 VIEW COMPLETED DATE/TME: 01/13/2020 20:03 CLINICAL HISTORY: 69 years, Male, fever, post-op COMPARISON: September 26, 2017 NUMBER OF VIEWS: Single TECHNIQUE: AP portable upright LIMITATIONS: None. FINDINGS: Cardiomediastinal silhouette is of normal size. Lungs are grossly clear. No effusion. No pneumothorax. IMPRESSION: No acute intrathoracic process. No adverse change copyright 2010 [employer]- All Rights Reserved
[2020-01-13 21:26] LABS: APPEARANCE,URINE SLIGHTLY-CLOUDY; BILIRUBIN,URINE NEGATIVE (NEGATIVE); COLOR,URINE YELLOW; GLUCOSE, URINE >=500 mg/dL (NEGATIVE); KETONES,URINE 20 mg/dL (NEGATIVE); PROTEIN,URINE 100 mg/dL (NEGATIVE); URINE SPECIFIC GRAVITY 1.024; UROBILINOGEN,URINE NEGATIVE mg/dL (<2.0)
--- NOTE | 2020-01-13 21:27 | ER Document Report ---
ED General - General Chief Complaint: Abdominal Pain Stated Complaint: LOW ABDOMINAL PAIN Time Seen by Provider: 01/13/20 19:59 Primary Care Provider: NA VALERIO MD [Primary Care Provider] - Follow up as needed TRAVEL OUTSIDE OF THE [place] IN LAST 30 DAYS: No - HPI Notes: Patient is a 69-year-old male who presents to the emergency department for evaluation of a fever. He had a robotic assisted laparoscopic prostatectomy by Dr. valerio in [facility] on Friday. He was discharged from the hospital yesterday. This morning he awoke with a fever. He has had some nausea but no emesis. He is having bowel movements. No cough. He complains of a periumbilical pain that he described as a soreness. He states his postoperative pain is remained about stable. He has had a Cedillo catheter in place since surgery. - Related Data Allergies/Adverse Reactions: No Known Drug Allergies Allergy (Verified 10/06/15 17:46) Home Medications: Warfin -patient has not resumed this medication as of yet. Hydrocodone. ASA. atorvastatin. cephalexin. meftformin. hyzaar. metoprolol. multivitamin. pioglitazone. tamsulosin. vitamin K. warfin Past Medical History - General Information source: Patient - Social History Smoking Status: Never Smoker Chew tobacco use (# tins/day): No Drug Abuse: None Family History: Reviewed & Not Pertinent Patient has suicidal ideation: No Patient has homicidal ideation: No - Past Medical History Cardiac Medical History: Reports: Hx Coronary Artery Disease, Hx Heart Attack, Hx Hypertension Neurological Medical History: Denies: Hx Seizures Endocrine Medical History: Reports: Hx Diabetes Mellitus Type 2 Psychiatric Medical History: Reports: Hx Depression - Immunizations Hx Pneumococcal Vaccination: 11/17/14 Review of Systems - Review of Systems Constitutional: See HPI Gastrointestinal: See HPI Genitourinary: See HPI -: Yes All other systems reviewed and negative Physical Exam - Vital signs Vitals: Temp Pulse Resp BP Pulse Ox 102.8 F H 102 H 24 H 112/72 90 L 01/13/20 19:44 01/13/20 19:44 01/13/20 19:44 01/13/20 19:44 01/13/20 19:44 - Notes Notes: This is a very pleasant 69-year-old male who appears his stated age in no acute distress. Vital signs reviewed, please refer to chart. Head is normocephalic, atraumatic. Pupils equal round, reactive to light. Neck is supple without meningismus. Heart is regular rate and rhythm. Lungs are clear to auscultation bilaterally. Abdomen is soft, diffusely tender without rebound or guarding, normoactive bowel sounds throughout. He has well approximated laparoscopic wounds on the lower abdomen. Cedillo catheter is in place, no purulent drainage at the urethra. Extremities without cyanosis, clubbing. Posterior calves are nontender. Peripheral pulses are equal. Skin is warm and dry. Patient is awake, alert, neurological exam is nonfocal. Course - Re-evaluation Re-evalutation: 01/13/20 21:27 Patient presents to the emergency department for evaluation. He had laboratory investigations and interventions ordered through triage. Patient has been given IV fluids. Awaiting urinalysis results, as UTI is certainly high on my differential diagnosis. Patient is stable at this time, we will continue to monitor. 01/14/20 01:10 Patient is laboratory investigations revealed significant electrolyte abnormalities, including hypomagnesemia, hypokalemia, hypocalcemia. Urinalysis revealed large blood, but this is not unexpected given his recent prostatectomy. This was sent for culture. His blood cultures are pending. He was treated empirically with ceftriaxone. CT scan of the abdomen pelvis with IV contrast did reveal a 6.6 cm lesion of the right paracentral pelvis which could be seroma versus phlegmon given his recent postoperative history. I did consult with Dr. Caballero, urologist on-call at [facility]. He believes it is appropriate to send the patient there, as we do not have urology service, and this could well be a fever secondary to a postoperative complication. Patient was accepted as an ED transfer by Dr. Caballero. 01/14/20 02:02 Transport is present. Patient is stable, has no further questions or concerns. He is medically cleared for transfer to [facility]. - Vital Signs Vital signs: Temp Pulse Resp BP Pulse Ox 98.0 F 102 H 16 131/66 H 97 01/14/20 01:31 01/13/20 19:44 01/14/20 01:31 01/14/20 01:31 01/14/20 01:31 - Laboratory Result Diagrams: 01/13/20 20:15 01/13/20 21:22 Laboratory results interpreted by me: 01/13/20 01/13/20 01/13/20 20:15 20:28 20:28 Hgb 12.2 L Hct 37.2 L RDW 14.8 H Lymph % (Auto) 7.1 L Absolute Neuts (auto) 8.6 H Seg Neutrophils % 84.4 H VBG pH 7.51 H VBG pCO2 30.4 L Sodium Potassium Chloride Carbon Dioxide Glucose Calcium Magnesium Total Protein Albumin Urine Protein 100 H Urine Glucose (UA) >=500 H Urine Ketones 20 H Urine Blood LARGE H Leukocyte Esterase Rfl TRACE H 01/13/20 01/13/20 21:22 21:22 Hgb Hct RDW Lymph % (Auto) Absolute Neuts (auto) Seg Neutrophils % VBG pH VBG pCO2 Sodium 134.5 L Potassium 2.8 L* Chloride 112 H Carbon Dioxide 17 L Glucose 179 H Calcium 5.9 L* Magnesium 1.1 L* Total Protein 4.6 L Albumin 2.0 L Urine Protein Urine Glucose (UA) Urine Ketones Urine Blood Leukocyte Esterase Rfl - Diagnostic Test Radiology reviewed: Reports reviewed Radiology results interpreted by me: 01/14/20 01:09 Chest X-Ray 01/13/20 20:03 IMPRESSION: No acute intrathoracic process. No adverse change copyright 2011 [employer]- All Rights Reserved Abdomen/Pelvis CT 01/13/20 20:10 IMPRESSION: 1. Small free air within the pelvis. Differential etiologies include perforated viscus and iatrogenic. 2. 6.6 cm cystic lesion of the right paracentral pelvis. Differential diagnosis includes complicated seroma, lymphocele, phlegmon, or other neoplasm. 3. Small gas bubbles within the urinary bladder. Cedillo. Differential etiologies include iatrogenic, infectious, and occult fistula. 4. Stable 4.1 cm AAA. Recommend follow-up in 12 months and Vascular Surgery consultation. 5. Advanced coronary arterial calcification/stent. Atherosclerotic vascular disease. 6. Chronic irregular L2 inferior endplate probably related to advanced disc degeneration. Differential diagnosis includes discitis. Discharge - Discharge Clinical Impression: Postoperative fever, Hypomagnesemia, Hypocalcemia, Hypokalemia Sepsis Qualifiers: Sepsis type: sepsis due to unspecified organism Sepsis acute organ dysfunction status: without acute organ dysfunction Qualified Code(s): A41.9 - Sepsis, unspecified organism Condition: Stable Disposition: [facility] Admitting Provider: Dr. Caballero Referrals: POINT,NA C, MD [Primary Care Provider] - Follow up as needed
[2020-01-13 21:58] LABS: ALKALINE PHOSPHATASE 53 U/L (38-126); ANION GAP 6 (5-19); ASPARTATE AMINO TRANSFERASE 18 U/L (17-59); BILIRUBIN,TOTAL 1.2 mg/dL (0.2-1.3); BLOOD UREA NITROGEN 10 mg/dL (7-20); CARBON DIOXIDE 17 mmol/L (22-30); CHLORIDE 112 mmol/L (98-107); GLUCOSE 179 mg/dL (75-110); TOTAL PROTEIN 4.6 g/dL (6.3-8.2)
[2020-01-13 22:16] LABS: CALCIUM 5.9 mg/dL (8.4-10.2); POTASSIUM 2.8 mmol/L (3.6-5.0)
[2020-01-13] MEDS ORDERED: NORMAL SALINE 1000 ML 1,000 ML IV PRN (22:33)
[2020-01-13] MEDS ORDERED: CALCIUM GLUCONATE 1000 MG/10 ML INJ IV ONE (22:36)
[2020-01-13] MEDS: RINGERS SOLUTION,LACTATED 1,000 ML IV PRN (23:11)
[2020-01-13] MEDS ORDERED: CEFTRIAXONE 1 GM/D5W RTU 1 GM/50 ML RTUPB IV ONE (23:25)
[2020-01-13] MEDS ORDERED: POTASSIUM CHLORIDE 10 MEQ TABLET.ER PO ONE (23:32)
[2020-01-13] MEDS: MAGNESIUM SULFATE/D5W 1 GM/100 ML RTUPB IV SCH (23:34)
[2020-01-14] MEDS: RINGERS SOLUTION,LACTATED 1,000 ML IV PRN (00:18)
--- NOTE | 2020-01-14 00:28 | RADIOLOGY REPORT (SQ) ---
EXAM DESCRIPTION: CT ABDOMEN PELVIS WITH IV CONTRAST COMPLETED DATE/TME: 01/13/2020 20:10 CLINICAL HISTORY: 69 years Male, Recent laparoscopy-prostate, fever and abd pain Comparison:Nov 26 2016, 03/23/18 Technique: IV contrast. Coronal and sagittal reformat. This exam was performed according to our departmental dose-optimization program, which includes automated exposure control, adjustment of the mA and/or kV according to patient size and/or use of iterative reconstruction technique. [facility]: Dose Right [facility]: CareDose [facility]: Dose Right [facility]: Teradose 4D [facility]: [employer] LIMITATIONS: None Findings: Advanced coronary arterial calcification/stent. Atherosclerotic vascular disease. Cedillo. Small intrapelvic gas bubbles and fat stranding. Small gas bubbles within the urinary bladder. 5.0 x 6.6 x 3.6 cm, 9-HU, cystic lesion of the right paracentral pelvis anteriorly, image 85 of series 3. Infrarenal abdominal aortic aneurysm with cross-sectional diameters of 4.1 x 3.9 -cm (prior: 4.1 x 4.0 cm, 03/23/18). Stable 3.6 cm cystic mass of the left adrenal gland, likely benign. Likely benign renal cyst(s), not definitively characterized. Minimal ascites. Moderate disc desiccation between the L2 and L5 levels. Chronic irregular L2 inferior endplate probably related to advanced disc degeneration. Differential diagnosis includes discitis. Normal appendix. No gross evidence of gallbladder inflammation, hepatobiliary obstruction, or portal vein defect. No bowel obstruction. No hydronephrosis or hydroureter. No renal/ureteral stone. Inferior thorax, liver, gallbladder, pancreas, spleen, adrenals, renal system, gastrointestinal tract, lymphatics, vasculature, and musculoskeleton appear otherwise unremarkable. IMPRESSION: 1. Small free air within the pelvis. Differential etiologies include perforated viscus and iatrogenic. 2. 6.6 cm cystic lesion of the right paracentral pelvis. Differential diagnosis includes complicated seroma, lymphocele, phlegmon, or other neoplasm. 3. Small gas bubbles within the urinary bladder. Cedillo. Differential etiologies include iatrogenic, infectious, and occult fistula. 4. Stable 4.1 cm AAA. Recommend follow-up in 12 months and Vascular Surgery consultation. 5. Advanced coronary arterial calcification/stent. Atherosclerotic vascular disease. 6. Chronic irregular L2 inferior endplate probably related to advanced disc degeneration. Differential diagnosis includes discitis.
[2020-01-14] MEDS: MAGNESIUM SULFATE/D5W 1 GM/100 ML RTUPB IV SCH (00:43)
[2020-01-14 01:47] VITALS: BP 131/66
[2020-01-14] MEDS ORDERED: RINGERS SOLUTION,LACTATED 1,000 ML IV PRN (01:55)
--- NOTE | 2020-01-14 13:54 | EKG REPORT ---
SEVERITY:- ABNORMAL ECG - SINUS RHYTHM MULTIPLE VENTRICULAR PREMATURE COMPLEXES PROBABLE INFERIOR INFARCT, AGE INDETERMINATE CONSIDER ANTERIOR INFARCT : Confirmed by: Ashly Garcia MD 14-Jan-2020 13:53:05
== END 2020-01-14 02:27 | disposition short-term general hospital (02) ==
LOC: ER 19:36
DX: A41.9 Sepsis, unspecified organism (principal); E83.42 Hypomagnesemia; E83.51 Hypocalcemia; E87.6 Hypokalemia; R50.82 Postprocedural fever; I71.4 Abdominal aortic aneurysm, without rupture; R11.0 Nausea; R10.33 Periumbilical pain; R10.817 Generalized abdominal tenderness; I25.10 Atherosclerotic heart disease of native coronary artery without angina pectoris; I10 Essential (primary) hypertension; E11.9 Type 2 diabetes mellitus without complications; Z90.79 Acquired absence of other genital organ(s); Z79.891 Long term (current) use of opiate analgesic; Z79.82 Long term (current) use of aspirin; Z79.899 Other long term (current) drug therapy; Z79.84 Long term (current) use of oral hypoglycemic drugs; Z95.5 Presence of coronary angioplasty implant and graft
CPT/HCPCS: 93005; 99285; 96361; 96365; 96366; 96368; 36415; 87040; 87086; 82962; 83605; 83735; 85025; 85610; 80053; 81001; 82803; 71045; 74177; 93010; A9270 ×2; J0610; J3475 ×2; J7030; J7120 ×2; J0696

== ENCOUNTER → 2020-05-11 | Outpatient (CLI) | payer MEDICARE ==
--- NOTE | 2020-05-11 12:47 | RADIOLOGY REPORT (SQ) ---
EXAM DESCRIPTION: CT ABD/PELVIS WITH IV ONLY IMAGES COMPLETED DATE/TIME: 05/11/2020 9:26 am REASON FOR STUDY: ABDOMINAL AORTIC ANEURYSM, WITHOUT RUPTURE I71.4 ABDOMINAL AORTIC ANEURYSM, WITHO UT RUPTURE COMPARISON: 01/13/2020 TECHNIQUE: CT scan of the abdomen and pelvis performed using helical scanning technique with dynamic intravenous contrast injection. No oral contrast. Images reviewed with lung, soft tissue, and bone windows. Reconstructed coronal and sagittal MPR images reviewed. Delayed images for evaluation of the urinary system also acquired. All images stored on PACS. All CT scanners at this facility use dose modulation, iterative reconstruction, and/or weight based d osing when appropriate to reduce radiation dose to as low as reasonably achievable (ALARA). [facility]: Dose Right [facility]: CareDose [facility]: Dose Right [facility]: Teradose 4D [facility]: [employer] CONTRAST TYPE AND DOSE: 100 mL Omnipaque 350- low osmolar. RENAL FUNCTION: Creatinine 1.1 RADIATION DOSE: CT Rad equipment meets quality standard of care and radiation dose reduction techniq ues were employed. CTDIvol: 27.4 - 27.5 mGy. DLP: 3003 mGy-cm.. LIMITATIONS: None. FINDINGS: LOWER CHEST: Right middle lobe 4 mm subpleural pulmonary nodule is unchanged. LIVER: Stable, again demonstrating few scattered punctate hypoattenuating foci, likely on the basis o f tiny hepatic cysts. SPLEEN: Normal size. No focal lesions. PANCREAS: No masses. No significant calcifications. No adjacent inflammation or peripancreatic fluid collections. Pancreatic duct not dilated. GALLBLADDER: No identified stones by CT criteria. No inflammatory changes to suggest cholecystitis. ADRENAL GLANDS: Stable 3.4 x 3.3 x 3.2 cm left adrenal nodule. RIGHT KIDNEY AND URETER: Stable 4.5 x 4.2 x 4.7 cm simple cyst. No solid masses. No significant ca lcifications. No hydronephrosis or hydroureter. LEFT KIDNEY AND URETER: No solid masses. No significant calcifications. No hydronephrosis or hydr oureter. AORTA AND VESSELS: Re- demonstration of an infrarenal abdominal aortic aneurysm measuring up to 4.3 c m in greatest orthogonal dimension ; this represents no change when retrospectively measured in the s jenelle plane. Calcified and noncalcified plaque without dissection. Bilateral proximal iliac artery an eurysms. No acute findings. RETROPERITONEUM: No retroperitoneal adenopathy, hemorrhage or masses. BOWEL AND PERITONEAL CAVITY: Scattered colonic diverticula without focal inflammatory changes. No ma ss. No obstruction. APPENDIX: Normal. PELVIS: No mass. No free fluid. Normal bladder. ABDOMINAL WALL: Small fat containing right inguinal hernia. Incidental note is made of a probable ph lebolith within the left inguinal canal. BONES: No significant or acute findings. OTHER: No other significant finding. IMPRESSION: Stable CT appearance of the abdomen and pelvis demonstrating a 4.3 cm infrarenal abdomin al aortic aneurysm. Other chronic and incidental findings as detailed above. TECHNICAL DOCUMENTATION: JOB ID: [id number] Quality ID # [id number]: Final reports with documentation of one or more dose reduction techniques (e.g., Au tomated exposure control, adjustment of the mA and/or kV according to patient size, use of iterative reconstruction technique) 2010 [employer]- All Rights Reserved Reading location - IP/workstation name: [email or web address]
== END ==
LOC: RAD 08:55
PROVIDERS: ATTEND Internal Medicine
DX: I71.4 Abdominal aortic aneurysm, without rupture (principal); K40.90 Unilateral inguinal hernia, without obstruction or gangrene, not specified as recurrent
CPT/HCPCS: 74177; 82565